=== PATIENT | female | born 1995 | race Caucasian/White ===

== ENCOUNTER 2016-08-24 17:15 | Emergency (ER) | payer SELFPAY ==
[2016-08-24 17:32] VITALS: BP 134/82
--- NOTE | 2016-08-24 17:50 | UC ---
Back Pain HPI - HPI Summary HPI Summary: lower back pain x 1 day injury to right lower back at work as she was lifting something heavy no radiation of the pain , no lower leg weakness no urinary symptoms also pain in her lower abdominal muscle - History of Current Complaint Chief Complaint: UCBackPain Stated Complaint: BACK,STOMACH STRAIN (WC) Time Seen by Provider: 08/24/16 17:37 Hx Obtained From: Patient Hx Last Menstrual Period: 07/28/16 ?: No Onset/Duration: Sudden Onset, Lasting Days - 1, Still Present Timing: Constant Severity Initially: Moderate Severity Currently: Mild Back Pain: Is Discrete @ - lower back Character: Aching Aggravating: Movement, Lifting, Walking, Cough Associated Signs And Symptoms: Positive: Abdominal Pain. Negative: Swelling, Redness, Bruising, Fever, Weakness, Numbness, Tingling, Flank Pain - Allergies/Home Medications Allergies/Adverse Reactions: Allergies Allergy/AdvReac Type Severity Reaction Status Date / Time No Known Allergies Allergy Verified 08/24/16 17:32 Home Medications: Home Medications Acetaminophen TAB* [Tylenol TAB*] 650 mg PO Q4H PRN 08/24/16 [History Confirmed 08/24/16] Ibuprofen TAB* [Advil TAB*] 400 mg PO Q6H PRN 08/24/16 [History Confirmed ] PMH/Surg Hx/FS Hx/Imm Hx Previously Healthy: Yes - Surgical History Surgical History: None - Family History Known Family History: Negative: Diabetes - Social History Alcohol Use: None Substance Use Type: None Smoking Status (MU): Never Smoked Tobacco - Immunization History Vaccination Up to Date: Yes Review of Systems Constitutional: Negative Skin: Negative Musculoskeletal: Other: - lower back pain All Other Systems Reviewed And Are Negative: Yes Physical Exam Triage Information Reviewed: Yes Appearance: Well-Appearing, No Pain Distress, Well-Nourished Vital Signs: Initial Vital Signs Temp 98.7 F 08/24/16 17:24 Pulse 84 08/24/16 17:24 Resp 16 08/24/16 17:24 BP 134/82 08/24/16 17:24 Pulse Ox 100 08/24/16 17:24 Vital Signs Reviewed: Yes Eyes: Positive: Conjunctiva Clear ENT Exam: Normal ENT: Positive: Normal ENT inspection, Hearing grossly normal Neck exam: Normal Respiratory Exam: Normal Respiratory: Positive: Chest non-tender, Lungs clear, Normal breath sounds Cardiovascular: Positive: RRR, No Murmur, Pulses Normal Abdomen Description: Positive: No Organomegaly, Soft, Other: - + abdominal muscle tenderness,. Negative: CVA Tenderness (R), CVA Tenderness (L), Distended , Guarding, Hernia @ Bowel Sounds: Positive: Present Musculoskeletal: Positive: Other: - lower back: no swelling, + mild tenderness right lower back good ROM on flexion and extension Back Pain Course/Dx - Differential Dx/Diagnosis Provider Diagnoses: lower back strain. abdominal muscle strain Discharge - Discharge Plan Condition: Stable Disposition: HOME Patient Education Materials: Low Back Strain (ED) Referrals: Angela Wills PA [Primary Care Provider] - If Needed Additional Instructions: lower back strain abdominal muscle strain
== END 2016-08-24 17:52 | disposition home or self-care (01) ==
LOC: UCCORT 17:15
DX: S39.012A Strain of muscle, fascia and tendon of lower back, initial encounter (principal); S39.011A Strain of muscle, fascia and tendon of abdomen, initial encounter; X50.0XXA Overexertion from strenuous movement or load, initial encounter; Y93.9 Activity, unspecified; Y92.9 Unspecified place or not applicable
CPT/HCPCS: 99211; G0463

== ENCOUNTER 2018-05-12 09:07 | Emergency (ER) | payer OTHER ==
[2018-05-12 09:25] VITALS: BP 145/79
[2018-05-12] MEDS ORDERED: Ondansetron ODT TAB* 4 MG PO ONE (09:45)
[2018-05-12] MEDS ORDERED: Meclizine TAB* 12.5 MG PO ONE (09:58)
--- NOTE | 2018-05-12 10:11 | UC ---
Syncope/New Syncope HPI - HPI Summary HPI Summary: dizziness x 1 day sudden onset this morning at work near syncope , headache, felt very dizzy , room spinning - History Of Current Complaint Chief Complaint: UCDizziness Stated Complaint: DIZZY,SHAKY,NAUSEOUS Time Seen by Provider: 05/12/18 09:30 Hx Obtained From: Patient Hx Last Menstrual Period: 04/29/18 Onset/Duration: Sudden Onset, Lasting Hours - 2, Still Present Activity At Onset: Exertion Timing: Constant Context: Witnessed Associated Head Trauma: No Pain Intensity: 0 Aggravating Factor(s): Position Change Alleviating Factor(s): Position Change Associated Signs And Symptoms: Positive: Dizzy, Headache, Lightheadedness, Weakness. Negative: AMS, Chest Pain, Decreased Oral Intake, Diarrhea, Diaphoresis, GI Blood Loss, Head Trauma (Remote), Head Trauma (Recent), Numbness , Pain, Palpitations, Seizure, Shortness Of Breath, Vomiting - Allergies/Home Medications Allergies/Adverse Reactions: Allergies Allergy/AdvReac Type Severity Reaction Status Date / Time No Known Allergies Allergy Verified 05/12/18 09:17 PMH/Surg Hx/FS Hx/Imm Hx Previously Healthy: Yes - Surgical History Surgical History: None - Family History Known Family History: Negative: Diabetes - Social History Alcohol Use: None Substance Use Type: None Smoking Status (MU): Never Smoked Tobacco - Immunization History Vaccination Up to Date: Yes Review of Systems All Other Systems Reviewed And Are Negative: Yes Constitutional: Positive: Negative Skin: Positive: Negative Eyes: Positive: Negative ENT: Positive: Negative Respiratory: Positive: Negative Neurovascular: Positive: Negative Musculoskeletal: Positive: Negative Neurological: Positive: Headache, Weakness Psychological: Positive: Negative Is Patient Immunocompromised?: Yes Physical Exam Triage Information Reviewed: Yes Appearance: Well-Appearing, Pain Distress Vital Signs: Initial Vital Signs Temp 97 F 05/12/18 09:19 Pulse 90 05/12/18 09:19 Resp 16 05/12/18 09:19 BP 145/79 05/12/18 09:19 Pulse Ox 100 05/12/18 09:19 Vital Signs Reviewed: Yes Eyes: Positive: Conjunctiva Clear ENT: Positive: Normal ENT inspection, Hearing grossly normal, Pharynx normal Neck exam: Normal Neck: Positive: Supple, Nontender, No Lymphadenopathy Respiratory: Positive: Chest non-tender, Lungs clear, Normal breath sounds Cardiovascular: Positive: RRR, No Murmur, Pulses Normal Abdominal Exam: Normal Abdomen Description: Positive: Nontender, Soft. Negative: CVA Tenderness (R), CVA Tenderness (L), Distended, Guarding Bowel Sounds: Positive: Present Musculoskeletal Exam: Normal Musculoskeletal: Positive: Strength Intact, ROM Intact Neurological: Positive: Alert Skin Exam: Normal Syncope Course/Dx - Differential Dx/Diagnosis Provider Diagnosis: Vertigo Discharge - Sign-Out/Discharge Documenting (check all that apply): Patient Departure All imaging exams completed and their final reports reviewed: No Studies - Discharge Plan Condition: Stable Disposition: HOME Prescriptions: Meclizine TAB* [Antivert 12.5 TAB*] 25 mg PO TID PRN #15 tab PRN Reason: Dizziness Patient Education Materials: Vertigo (DC) Forms: *Work Release Referrals: Angela Wills PA [Primary Care Provider] - 5 Days - Billing Disposition and Condition Condition: STABLE Disposition: Home
== END 2018-05-12 10:28 | disposition home or self-care (01) ==
LOC: UCCORT 09:07
DX: R42 Dizziness and giddiness (principal)
CPT/HCPCS: 99212; A9270-GY; G0463

== ENCOUNTER 2019-03-02 11:04 | Emergency (ER) | payer OTHER ==
[2019-03-02 11:32] VITALS: BP 133/77
--- NOTE | 2019-03-02 11:35 | UC ---
Back Pain HPI - HPI Summary HPI Summary: 23 yo female presents with low back pain. 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 Has been painful since that time. Pain is worse with bending and lifting. She took 600mg ibuprofen and came directly to . She denies hx of back problems, radiation of pain, numbness, tingling, saddle anesthesia, or loss of bowel/bladder control. - History of Current Complaint Chief Complaint: UCBackPain Stated Complaint: BACK INJ (WC) Time Seen by Provider: 03/02/19 11:35 Hx Obtained From: Patient Hx Last Menstrual Period: 04/29/18 Onset/Duration: Sudden Onset Timing: Constant Severity Initially: Moderate Severity Currently: Moderate Pain Intensity: 4 Pain Scale Used: 0-10 Numeric - Allergies/Home Medications Allergies/Adverse Reactions: Allergies Allergy/AdvReac Type Severity Reaction Status Date / Time No Known Allergies Allergy Verified 03/02/19 11:32 Home Medications: Home Medications Ibuprofen 600 mg PO ONCE 03/02/19 [History Confirmed 03/02/19] PMH/Surg Hx/FS Hx/Imm Hx - Additional Past Medical History Additional PMH: None - Surgical History Surgical History: None - Family History Known Family History: Negative: Diabetes - Social History Alcohol Use: None Substance Use Type: None Smoking Status (MU): Never Smoked Tobacco - Immunization History Vaccination Up to Date: Yes Review of Systems All Other Systems Reviewed And Are Negative: No Constitutional: Positive: Negative Skin: Positive: Negative Respiratory: Positive: Negative Cardiovascular: Positive: Negative Gastrointestinal: Positive: Negative Neurovascular: Positive: Negative Musculoskeletal: Positive: Other: - Back pain Neurological: Positive: Negative Psychological: Positive: Negative Physical Exam - Summary Physical Exam Summary: GENERAL: NAD. WDWN. No pain distress. SKIN: No rashes, sores, lesions, or open wounds. NECK: Supple. FROM. Nontender. No lymphadenopathy. CHEST: CTAB. No r/r/w. No accessory muscle use. Breathing comfortably and in no distress. CV: RRR. Pulses intact. Cap refill <2seconds MSK: TTP over lumbar paraspinal muscles. Pain with flexion and extension of spine. Positive SLR b/l for low back pain without radiation. Strength 5/5 B/L LEs including dorsiflexion and plantar flexion. FROM B/L LEs. No edema. NEURO: Alert. Sensations intact B/L LEs L3-S1. Reflexes intact PSYCH: Age appropriate behavior. Triage Information Reviewed: Yes Vital Signs: Initial Vital Signs Temp 98.4 F 03/02/19 11:29 Pulse 93 03/02/19 11:29 Resp 18 03/02/19 11:29 BP 133/77 03/02/19 11:29 Pulse Ox 100 03/02/19 11:29 Vital Signs Reviewed: Yes Diagnostics - Radiology Lumbar XR Radiology Interpretation Completed By: Radiologist Summary of Radiographic Findings: IMPRESSION: #. Negative radiographic exam of the lumbar sacral spine. Back Pain Course/Dx - Course Course Of Treatment: XR as above. Suspect muscle strain spasm. Advised to rest and apply heat to the area. Continue ibuprofen as directed and will rx for flexeril. Advised to f/u with [facility] for her work related injury - Differential Dx/Diagnosis Provider Diagnosis: Back strain Discharge ED - Sign-Out/Discharge Documenting (check all that apply): Patient Departure All imaging exams completed and their final reports reviewed: Yes - Discharge Plan Condition: Stable Disposition: HOME Prescriptions: Cyclobenzaprine TAB* [Flexeril 10 MG TAB*] 10 mg PO BID PRN #14 tab PRN Reason: Pain - Mild Patient Education Materials: Low Back Strain (ED), Lower Back Exercises (ED) Forms: *Work Release Referrals: Angela Wills PA [Primary Care Provider] - Femi Banks MD [Medical Doctor] - As Soon As Possible Additional Instructions: If you develop a fever, shortness of breath, chest pain, new or worsening symptoms - please call your PCP or go to the ED immediately. 1) Rest and apply ice/heat to your lower back to reduce pain 2) Practice gentle stretching 3) May continue taking ibuprofen as directed 4) I recommend that you call Dr. Banks of Occupational Medicine at the number below to schedule an appointment for a recheck of your work related injury - Billing Disposition and Condition Condition: STABLE Disposition: Home
== END 2019-03-02 12:21 | disposition home or self-care (01) ==
LOC: UCCORT 11:04
DX: S39.012A Strain of muscle, fascia and tendon of lower back, initial encounter (principal); X50.9XXA Other and unspecified overexertion or strenuous movements or postures, initial encounter; Y92.9 Unspecified place or not applicable; Y99.0 Civilian activity done for income or pay
CPT/HCPCS: 72110; 99212; G0463

== ENCOUNTER 2019-04-18 14:53 | Emergency (ER) | payer MEDICAID, OTHER ==
[2019-04-18 15:50] VITALS: BP 119/79
--- NOTE | 2019-04-18 15:53 | UC ---
Throat Pain/Nasal Jeremiah HPI - HPI Summary HPI Summary: 24-year-old female whose had a sore throat for 2 days and also an ingrown toenail of her left great toe which was red and swollen last evening and throbbing however it did drain some pus and feels better today. - History of Current Complaint Chief Complaint: UCSkin Stated Complaint: LT BIG TOE COMPLAINT, SORE THROAT, FEVER Time Seen by Provider: 04/18/19 15:01 Hx Obtained From: Patient Hx Last Menstrual Period: 04/04/19 ?: No Onset/Duration: Gradual Onset, Lasting Days Severity: Mild Pain Intensity: 2 Cough: None Associated Signs & Symptoms: Positive: Negative - Allergies/Home Medications Allergies/Adverse Reactions: Allergies Allergy/AdvReac Type Severity Reaction Status Date / Time No Known Allergies Allergy Verified 04/18/19 15:49 Home Medications: Home Medications Ibuprofen 600 mg PO ONCE 03/02/19 [History Confirmed 04/18/19] Amoxicillin/Clavulanate TAB* [Augmentin TAB 875*] 875 mg PO BID 10 Days #20 tab 04/18/19 [Rx] PMH/Surg Hx/FS Hx/Imm Hx Previously Healthy: Yes - Surgical History Surgical History: None - Family History Known Family History: Positive: None Negative: Diabetes - Social History Occupation: Employed Full-time Lives: With Family Alcohol Use: None Substance Use Type: None Smoking Status (MU): Never Smoked Tobacco - Immunization History Vaccination Up to Date: Yes Review of Systems All Other Systems Reviewed And Are Negative: Yes Skin: Positive: Other - Patient has an ingrown toenail on her left great toe which she cut down into and caused swelling and throbbing however it has improved today. ENT: Positive: Sore Throat Is Patient Immunocompromised?: No Physical Exam Triage Information Reviewed: Yes Appearance: Well-Appearing, No Pain Distress, Well-Nourished Vital Signs: Initial Vital Signs Temp 98.2 F 04/18/19 15:46 Pulse 109 04/18/19 15:46 Resp 17 04/18/19 15:46 BP 119/79 04/18/19 15:46 Pulse Ox 99 04/18/19 15:46 Vital Signs Reviewed: Yes Eyes: Positive: Conjunctiva Clear ENT: Positive: Pharyngeal erythema, TMs normal, Tonsillar swelling - Mild tonsillar swelling., Uvula midline. Negative: Tonsillar exudate, Trismus, Muffled voice, Hoarse voice Neck: Positive: Supple, Nontender, No Lymphadenopathy Respiratory: Positive: Lungs clear, Normal breath sounds, No respiratory distress, No accessory muscle use Cardiovascular: Positive: No Murmur, Pulses Normal, Brisk Capillary Refill, Tachycardia Abdomen Description: Positive: Nontender, No Organomegaly, Soft. Negative: CVA Tenderness (R), CVA Tenderness (L), Distended, Guarding, Hepatomegaly, Splenomegaly Bowel Sounds: Positive: Present Musculoskeletal Exam: Normal Musculoskeletal: Positive: Other: - Good peripheral pulses, neuro sensation and capillary refill. Neurological Exam: Normal Psychological Exam: Normal Skin: Positive: Other - The left great toenasil has been cut down into the toe. There is a small area of swelling with no exudate present and minimal redness. Throat Pain/Nasal Course/Dx - Course Course Of Treatment: Rapid strep test: Positive The patient is comfortable here and nontoxic. I did talk with her about cutting her toenails straight across instead of down into the skin. - Differential Dx/Diagnosis Provider Diagnosis: Paronychia, toe, Strep pharyngitis Discharge ED - Sign-Out/Discharge Documenting (check all that apply): Patient Departure All imaging exams completed and their final reports reviewed: No Studies - Discharge Plan Condition: Good Disposition: HOME Prescriptions: Amoxicillin/Clavulanate TAB* [Augmentin TAB 875*] 875 mg PO BID 10 Days #20 tab Patient Education Materials: Strep Throat (DC), Paronychia (ED) Forms: *Work Release Referrals: Angela Wills PA [Primary Care Provider] - Moose SALDANA,Michael Zarco [Doctor of Podiatric Medicine] - Additional Instructions: Her toothbrush in 24 hours, take Tylenol every 4 hours or ibuprofen every 8 hours for fever or throat pain. Warm saltwater gargles, throat lozenges. Soak your toe 4-6 times a day for 20 minutes each time. 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 - Billing Disposition and Condition Condition: GOOD Disposition: Home
== END 2019-04-18 16:24 | disposition home or self-care (01) ==
LOC: UCCORT 14:53
DX: J02.0 Streptococcal pharyngitis (principal); L03.032 Cellulitis of left toe
CPT/HCPCS: 87651; 99212; G0463